=== PATIENT | female | born 1955 | race Caucasian/White ===

== ENCOUNTER → 2018-07-17 12:02 | Outpatient (CLI) | payer OTHER, SELFPAY ==
--- NOTE | 2018-07-17 | DI.MG.S_ITS ---
BILATERAL DIGITAL SCREENING MAMMOGRAM 3D/2D WITH CAD: 07/17/2018 CLINICAL: Routine screening. Comparison is made to exams dated: 04/11/2017 mammogram, 05/01/2015 mammogram, and 05/11/2012 mammogram - [facility]. There are scattered fibroglandular elements in both breasts. Current study was also evaluated with a Computer Aided Detection (CAD) system. There is an oval equal density focal asymmetry with a circumscribed margin in the right breast at 12 o'clock middle depth. There is an oval equal density asymmetry with an obscured and circumscribed margin in the left breast at 6 o'clock anterior depth. No other significant masses or calcifications are seen in either breast. IMPRESSION: INCOMPLETE: NEEDS ADDITIONAL IMAGING EVALUATION The oval equal density focal asymmetry in the right breast at 12 o'clock middle depth is indeterminate. Mediolateral and spot compression views as well as additional views with possible ultrasound are recommended. The oval equal density asymmetry in the left breast at 6 o'clock anterior depth is indeterminate. Mediolateral and spot compression views as well as additional views with possible ultrasound are recommended. This exam was interpreted at Station ID: [id number]. NOTE: For mammograms, a report in lay terms will be sent to the patient. Approximately 15% of breast malignancies will not be visualized mammographically. In the management of a palpable breast mass, a negative mammogram must not discourage biopsy of a clinically suspicious lesion. Electronically Signed By: Tone lacy/felicia:07/17/2018 15:40:39 letter sent: Additional Imaging Needed ACR BI-RADS Category 0: Incomplete 3340F
--- NOTE | 2018-07-17 | DI.US.S_ITS ---
PROCEDURE: US THYROID INDICATIONS: THYROID NODULE TECHNIQUE: Real-time scanning was performed of the thyroid gland, with image documentation. COMPARISON: [facility], US, THYROID, 04/11/2017, 10:22. FINDINGS: Right: Thyroid lobe measures 5.5 x 1.8 x 1.9 cm, and is homogeneous in echotexture. Left: Thyroid lobe measures 3.3 x 0.9 x 0.8 cm, and is homogenous in echotexture. Isthmus: 1.2 mm thick. Nodule number: 1 Location: Left mid Size: Unchanged at 0.5 x 0.4 x 0.5 cm. Composition: Solid Echogenicity: Hyperechoic Shape: wider than tall. Margins: Smooth Echogenic foci: Macrocalcifications Total points: 5 ACR TI-RADS category: Moderately suspicious Nodule number: 2 Location: Right mid inferior Size: Unchanged at 3.0 x 1.6 x 1.9 cm. Composition: Solid Echogenicity: Isoechoic Shape: wider than tall. Margins: Smooth Echogenic foci: Internal punctate echogenic foci Total points: 6 ACR TI-RADS category: Moderately suspicious IMPRESSION: No change in bilateral thyroid nodules. Recommend sonographically directed fine needle aspiration involving the # 2 right thyroid nodule and continued sonographic surveillance as below. ACR TI-RADS definitions and recommendations: TI-RADS 1 (benign): 0 points. FNA not needed. TI-RADS 2 (not suspicious): 2 points. FNA not needed. TI-RADS 3 (mildly suspicious): 3 points. * FNA if 2.5 cm or larger, follow up if 1.5 cm or larger (at 1, 3, and 5 years). TI-RADS 4 (moderately suspicious): 4-6 points. * FNA if 1.5 cm or larger, follow up if 1 cm or larger (at 1, 2, 3, and 5 years). TI-RADS 5 (highly suspicious): 7 points or more. * FNA if 1 cm or larger, follow up if 0.5 cm or larger (every year for 5 years). Dictated by: Jonathan TANG Interpreted: Anthony Castillo MD on 07/17/2018 at 15:53 Approved by: Anthony Castillo M.D. on 07/17/2018 at 17:23
== END ==
PROVIDERS: Family Provider Family Medicine; PCP Family Medicine; Visit Provider Family Medicine
DX: Z12.31 Encounter for screening mammogram for malignant neoplasm of breast (principal); E04.2 Nontoxic multinodular goiter
CPT/HCPCS: 76536; 77063; 77067

== ENCOUNTER → 2018-08-19 14:16 | Outpatient (CLI) | payer OTHER, SELFPAY ==
--- NOTE | 2018-08-19 | DI.MG.S_ITS ---
BILATERAL DIGITAL DIAGNOSTIC MAMMOGRAM 3D/2D WITH ADDITIONAL VIEWS: 08/19/2018 CLINICAL: Additional evaluation requested from prior study. Comparison is made to exams dated: 07/17/2018 mammogram, 04/11/2017 mammogram, and 05/01/2015 mammogram - [facility]. There are scattered fibroglandular elements in both breasts. There is 0.5 cm oval low density focal asymmetry with an indistinct and circumscribed margin in the right breast at 12 o'clock middle depth. There is 0.7 cm oval low density focal asymmetry with an indistinct and circumscribed margin in the left breast at 6 o'clock anterior depth. No other significant masses or calcifications are seen in either breast. IMPRESSION: INCOMPLETE: NEEDS ADDITIONAL IMAGING EVALUATION The 0.5 cm oval low density focal asymmetry in the right breast at 12 o'clock middle depth is indeterminate. An ultrasound is recommended. The 0.7 cm oval low density focal asymmetry in the left breast at 6 o'clock anterior depth is indeterminate. An ultrasound is recommended. This exam was interpreted at Station ID: [id number]. NOTE: For mammograms, a report in lay terms will be sent to the patient. Approximately 15% of breast malignancies will not be visualized mammographically. In the management of a palpable breast mass, a negative mammogram must not discourage biopsy of a clinically suspicious lesion. Electronically Signed By: Tone lacy/felicia:08/19/2018 14:41:56 letter sent: Need Ultrasound ACR BI-RADS Category 0: Incomplete 3340F
--- NOTE | 2018-08-19 | DI.US.S_ITS ---
LIMITED ULTRASOUND OF RIGHT BREAST: 08/19/2018 CLINICAL: Additional evaluation requested from prior study. Comparison is made to exams dated: 08/19/2018 mammogram, 07/17/2018 mammogram, 04/11/2017 mammogram, 05/01/2015 mammogram, 05/11/2012 mammogram, and 08/03/2010 mammogram - [facility]. Color flow and real-time ultrasound of the right breast 12 o'clock region were performed on the areas of interest. There is 0.6 cm x 0.3 cm x 0.4 cm oval cyst with debris with a smooth internal wall in the right breast at 12 o'clock middle depth. This oval cyst with debris is hypoechoic with internal echoes and posterior acoustic enhancement. This correlates with mammography findings. Color flow imaging demonstrates that there is no vascularity present. IMPRESSION: PROBABLY BENIGN The 0.6 cm x 0.3 cm x 0.4 cm oval cyst with debris in the right breast is probably benign. Follow-up mammogram and ultrasound in 6 months is recommended. A follow-up mammogram and an ultrasound in 6 months is recommended to demonstrate stability. This exam was interpreted at Station ID: [id number]. Electronically Signed By: Tone lacy/felicia:08/19/2018 15:38:37 letter sent: Followup Recommended Ultrasound BI-RADS: 3 Probably benign
--- NOTE | 2018-08-19 | DI.US.S_ITS ---
LIMITED ULTRASOUND OF LEFT BREAST: 08/19/2018 CLINICAL: Additional evaluation requested from prior study. Comparison is made to exams dated: 08/19/2018 mammogram, 07/17/2018 mammogram, 04/11/2017 mammogram, 05/01/2015 mammogram, and 05/11/2012 mammogram - [facility]. Color flow and real-time ultrasound of the left breast 6 o'clock region were performed on the areas of interest. There is 0.8 cm x 0.3 cm x 0.4 cm dilated duct in the left breast at 6 o'clock anterior depth. This dilated duct is of mixed echogenicity with internal echoes. This correlates with mammography findings. Color flow imaging demonstrates that there is no vascularity present. IMPRESSION: PROBABLY BENIGN The 0.8 cm x 0.3 cm x 0.4 cm dilated duct in the left breast likely represents duct ectasia and is probably benign. Follow-up mammogram and ultrasound in 6 months is recommended. A follow-up mammogram and an ultrasound in 6 months is recommended to demonstrate stability. This exam was interpreted at Station ID: [id number]. Electronically Signed By: Tnoe lacy/felicia:08/19/2018 15:39:54 letter sent: Followup Recommended Ultrasound BI-RADS: 3 Probably benign
== END ==
PROVIDERS: PCP Family Medicine; Visit Provider Family Medicine
DX: R92.8 Other abnormal and inconclusive findings on diagnostic imaging of breast (principal); N60.01 Solitary cyst of right breast; N60.42 Mammary duct ectasia of left breast
CPT/HCPCS: 76642; 77066; G0279

== ENCOUNTER → 2019-05-11 14:42 | Outpatient (CLI) | payer OTHER, SELFPAY ==
--- NOTE | 2019-05-11 | DI.US.S_ITS ---
ULTRASOUND OF LEFT BREAST: 05/11/2019 CLINICAL: 6 month follow-up of the left breast. Comparison is made to exams dated: 05/11/2019 mammogram, 08/19/2018 ultrasound, 08/19/2018 mammogram, 07/17/2018 mammogram, 04/11/2017 mammogram, and 05/01/2015 mammogram - [facility]. Color flow ultrasound of the left breast was performed. Capps scale images of the real-time examination were reviewed. There is a round cystic lesion in the left breast at 6 o'clock anterior depth. This had a more elongated appearance on the prior ultrasound dated 08/01/18. This cyst displays internal echoes. This correlates with mammography findings. Color flow imaging demonstrates that there is no vascularity present. IMPRESSION: PROBABLY BENIGN The round cyst in the left breast likely represents a complicated cyst and is probably benign. A follow-up left mammogram and an ultrasound in 6 months is recommended to demonstrate stability. This exam was interpreted at Station ID: [id number]. Electronically Signed By: Deborah power/:05/11/2019 16:10:16 letter sent: Followup Recommended Ultrasound BI-RADS: 3 Probably benign
--- NOTE | 2019-05-11 | DI.MG.S_ITS ---
BILATERAL DIGITAL DIAGNOSTIC MAMMOGRAM 3D/2D SHORT-TERM FOLLOW-UP: 05/11/2019 CLINICAL: 12 month Short term follow up for bilateral breasts. Comparison is made to exams dated: 08/19/2018 ultrasound, 07/17/2018 mammogram, and 04/11/2017 mammogram - [facility]. There are scattered fibroglandular elements in both breasts. The focal asymmetry with an indistinct and circumscribed margin in the right breast at 12 o'clock middle depth is slightly increased in size from the prior mammogram dated 07/17/18. The focal asymmetry with an indistinct and circumscribed margin in the left breast at 6 o'clock anterior depth is decreased in size from the prior mammogram. No other significant masses or calcifications are seen in either breast. IMPRESSION: INCOMPLETE: NEEDS ADDITIONAL IMAGING EVALUATION The oval low density focal asymmetry in the right breast at 12 o'clock middle depth is indeterminate. The oval low density focal asymmetry in the left breast at 6 o'clock anterior depth is indeterminate. A targeted ultrasound of the bilateral breasts is recommended and will be performed immediately following this exam. This exam was interpreted at Station ID: [id number]. NOTE: For mammograms, a report in lay terms will be sent to the patient. Approximately 15% of breast malignancies will not be visualized mammographically. In the management of a palpable breast mass, a negative mammogram must not discourage biopsy of a clinically suspicious lesion. Electronically Signed By: Deborah Quezada M.D. lk/:05/11/2019 15:42:30 ACR BI-RADS Category 0: Incomplete 3340F
--- NOTE | 2019-05-11 | DI.US.S_ITS ---
ULTRASOUND OF RIGHT BREAST: 05/11/2019 CLINICAL: 6 month follow-up of the right breast. Comparison is made to exams dated: 05/11/2019 mammogram, 08/19/2018 ultrasound, 08/19/2018 mammogram, 07/17/2018 mammogram, 04/11/2017 mammogram, and 05/11/2012 mammogram - [facility]. Color flow ultrasound of the right breast was performed on the areas of interest. Capps scale images of the real-time examination were reviewed. There is a 0.6 cm x 0.5 cm x 0.5 cm oval anechoic cyst with a smooth internal wall in the right breast at 12 o'clock middle depth. This oval cyst demonstrates posterior acoustic enhancement. This abnormality is slightly increased in size and correlates with mammography findings. Color flow imaging demonstrates that there is no vascularity present. IMPRESSION: BENIGN There is no sonographic evidence of malignancy. The 0.6 cm x 0.5 cm x 0.5 cm oval cyst in the right breast is consistent with a simple cyst and is benign. A 1 year screening mammogram is recommended. This exam was interpreted at Station ID: [id number]. Electronically Signed By: Deborah power/:05/11/2019 16:12:19 letter sent: Normal Exam Ultrasound BI-RADS: 2 Benign
== END ==
PROVIDERS: PCP Family Medicine; Visit Provider Family Medicine
DX: R92.8 Other abnormal and inconclusive findings on diagnostic imaging of breast (principal); N64.89 Other specified disorders of breast; N60.02 Solitary cyst of left breast; N60.01 Solitary cyst of right breast
CPT/HCPCS: 76642; 77066; G0279

== ENCOUNTER → 2019-07-14 14:42 | Outpatient (CLI) | payer OTHER, SELFPAY | PROVIDERS: PCP Family Medicine; Referring Provider Family Medicine; Visit Provider Family Medicine | DX: M85.88 Other specified disorders of bone density and structure, other site (principal); Z78.0 Asymptomatic menopausal state; Z82.62 Family history of osteoporosis | CPT/HCPCS: 77080 ==

== ENCOUNTER → 2019-11-10 12:34 | Outpatient (CLI) | payer OTHER, SELFPAY ==
--- NOTE | 2019-11-10 | DI.US.S_ITS ---
PROCEDURE: US THYROID INDICATIONS: NONTOXIC SINGLE THYROID NODULE TECHNIQUE: Real-time scanning was performed of the thyroid gland, with image documentation. COMPARISON: [facility], US, US THYROID, 07/17/2018, 12:26. FINDINGS: Right: Thyroid lobe measures 5.5 x 1.4 x 1.7 cm, and is homogeneous in echotexture. Left: Thyroid lobe measures 3.5 x 0.9 x 1.0 cm, and is homogenous in echotexture. 5 mm midpole left thyroid calcification unchanged. Isthmus: 1.5 mm thick. Nodule number: 1 Location: Right mid inferior Size: Slightly increased at 2.8 x 1.5 x 2.0 cm. Composition: Solid Echogenicity: Hypoechoic Shape: wider than tall. Margins: Smooth Echogenic foci: Internal punctate echogenic foci Total points: 7 ACR TI-RADS category: Highly suspicious IMPRESSION: Increase in size of right thyroid nodule. Recommend nographically directed fine needle aspiration. ACR TI-RADS definitions and recommendations: TI-RADS 1 (benign): 0 points. FNA not needed. TI-RADS 2 (not suspicious): 2 points. FNA not needed. TI-RADS 3 (mildly suspicious): 3 points. * FNA if 2.5 cm or larger, follow up if 1.5 cm or larger (at 1, 3, and 5 years). TI-RADS 4 (moderately suspicious): 4-6 points. * FNA if 1.5 cm or larger, follow up if 1 cm or larger (at 1, 2, 3, and 5 years). TI-RADS 5 (highly suspicious): 7 points or more. * FNA if 1 cm or larger, follow up if 0.5 cm or larger (every year for 5 years). Dictated by: Jonathan TANG Interpreted: Kaia Alva MD on 11/10/2019 at 16:28 Approved by: Kaia Alva M.D. on 11/10/2019 at 17:17
== END ==
PROVIDERS: PCP Family Medicine; Referring Provider Family Medicine; Visit Provider Family Medicine
DX: E04.1 Nontoxic single thyroid nodule (principal)
CPT/HCPCS: 76536

== ENCOUNTER → 2019-12-02 08:07 | Outpatient (CLI) | payer OTHER, SELFPAY ==
--- NOTE | 2019-12-02 | DI.US.S_ITS ---
LIMITED ULTRASOUND OF LEFT BREAST: 12/02/2019 CLINICAL: 6 month follow-up of cysts. Comparison is made to exams dated: 12/02/2019 mammogram, 05/11/2019 ultrasound, 08/19/2018 ultrasound, 05/11/2019 mammogram, 08/19/2018 mammogram, and 07/17/2018 mammogram - [facility]. Color flow and real-time ultrasound of the left breast were performed. Capps scale images of the real-time examination were reviewed. There is a stable 0.4 cm x 0.4 cm x 0.3 cm irregular cyst in the left breast at 6 o'clock anterior depth 2 cm from the nipple. This irregular cyst displays internal echoes. This likely correlates with mammography findings. Color flow imaging demonstrates that there is no vascularity present. Adjacent or contiguous hypoechoic area measuring 0.7 cm x 0.7 cm x 0.3 cm. No internal vascularity. There also is a stable 0.3 cm x 0.3 cm x 0.2 cm round cyst in the left breast at 6 o'clock anterior depth 3 cm from the nipple. This round cyst is hypoechoic. Color flow imaging demonstrates that there is no vascularity present. IMPRESSION: PROBABLY BENIGN Stable complicated cysts at 6 o'clock 2 cm from the nipple in the left breast measuring 0.4 cm and 0.7 cm. Stable round complicated cyst at 6 o'clock 3 cm from the nipple in the left breast measuring 0.3 cm. A follow-up left breast mammogram and an ultrasound in 6 months is recommended to demonstrate stability. Patient will also be due for right breast screening mammogram at that time. This exam was interpreted at Station ID: [id number]. Electronically Signed By: Juvencio Aviels M.D. slc/:12/02/2019 09:34:03 letter sent: Followup Recommended Ultrasound BI-RADS: 3 Probably benign
--- NOTE | 2019-12-02 | DI.MG.S_ITS ---
UNILATERAL LEFT DIGITAL DIAGNOSTIC MAMMOGRAM 3D/2D SHORT-TERM FOLLOW-UP: 12/02/2019 CLINICAL: Short term follow up. Comparison is made to exams dated: 05/11/2019 mammogram, 08/19/2018 mammogram, 04/11/2017 mammogram, 07/17/2018 mammogram, and 05/01/2015 mammogram - [facility]. There are scattered fibroglandular elements in left breast. There is an oval low density focal asymmetry with an indistinct and circumscribed margin in the left breast at 6 o'clock anterior depth. This is not significantly changed. No other significant masses or calcifications are seen in the breast. IMPRESSION: INCOMPLETE: NEEDS ADDITIONAL IMAGING EVALUATION The oval low density focal asymmetry in the left breast is indeterminate. A targeted ultrasound is recommended and will immediately follow. This exam was interpreted at Station ID: [id number]. NOTE: For mammograms, a report in lay terms will be sent to the patient. Approximately 15% of breast malignancies will not be visualized mammographically. In the management of a palpable breast mass, a negative mammogram must not discourage biopsy of a clinically suspicious lesion. Electronically Signed By: Juvencio Aviles M.D. slc/:12/02/2019 08:37:04 ACR BI-RADS Category 0: Incomplete 3340F
== END ==
PROVIDERS: PCP Family Medicine; Referring Provider Family Medicine; Visit Provider Family Medicine
DX: R92.8 Other abnormal and inconclusive findings on diagnostic imaging of breast (principal); N60.02 Solitary cyst of left breast
CPT/HCPCS: 76642; 77065; G0279

== ENCOUNTER → 2019-12-13 12:46 | Outpatient (CLI) | payer OTHER, SELFPAY ==
--- NOTE | 2019-12-13 | PATH_ITS ---
Note [facility] Accession Number: [id number] TESTS RESULT FLAG UNITS REF RANGE LAB Clinician Provided Cytology Information No. of containers..01 Other (Miscellaneous) No. of containers..00 Previously Prepared Cytology Slide 01 RIGHT THYROID Clinician ICD10: Z00.00 DIAGNOSIS: 01 RIGHT THYROID NEGATIVE FOR MALIGNANT CELLS. [place] CATEGORY II. SPECIMEN CONSISTS OF BENIGN FOLLICULAR CELLS AND COLLOID CONSISTENT WITH A BENIGN FOLLICULAR NODULE. COMMENT: [employer] Developer slides of this case are also reviewed by Dr. Maria Luisa Hernandez who concurs with the given interpretation. Pathologist ICD10: E04.1 Lidia Boo MD, Pathologist NPI- [id number] Kalpesh Houston, Blood Bank Worker ([facility]) 01 30 CC, COLORLESS, CLEAR RECIEVED: IN CYTOLYT WITH 5 ALCOHOL FIXED AND 5 QUICK STAINED SLIDES ALSO 1 RNA VIAL WAS RECEIVED FOR FURTHER TESTING. /VDU 12/15/2019 1214 [facility] FLAG LEGEND: L-Low Normal,H-High Normal,LL-Alert Low,HH-Alert High <-Panic Low,>-Panic High,A-Abnormal,AA-Critical Abnormal Performed at: 01 =Z [facility] [address], [place] [address] Tone Jaquez MD, Performed at: 01 [facility] [address], [place], [place] [id number] MD Tone Jaquez MD Phone: [phone]
--- NOTE | 2019-12-13 | DI.US.S_ITS ---
PROCEDURE: US FINE NEEDLE ASPIRATION INDICATIONS: Nontoxic single thyroid nodule TECHNIQUE: The indications, alternatives, benefits, risks, and complications of the procedure were explained to the patient. Written informed consent was obtained and placed in the chart. The thyroid region was examined sonographically and a site was chosen for ultrasound guided percutaneous sampling. The skin was prepared and draped in the usual fashion, and anesthetized with 1% lidocaine infiltrated from the skin down to the thyroid gland. Multiple passes were then performed, with contents emptied into an appropriate pathology specimen container. A bandage was applied to the area of access at completion of the study. COMPARISON: None. FINDINGS: Location(s) of lesion(s) sampled: Right thyroid lobe, 2.8 x 1.5 x 2.0 cm ovoid mass [place]: 25 gauge hypodermic needles. Sign report Complications: None. IMPRESSION: Successful ultrasound-guided thyroid nodule fine needle aspiration, with cytology results pending. Please see chart below for management recommendations based on cytology results. [facility] ReportingRecommendationsNon-diagnostic* Repeat US-guided FNA, with on-site cytology evaluation if possible. * Repeated non-diagnostic nodules without high suspicion US features: close observation vs surgical consult. * Consider surgery if nodule has high suspicion US features, grows >20% in 2 dimensions on followup, or patient has clinical risk factors for malignancy. Benign* If nodule has high suspicion US features: repeat US and FNA within 12 months. * If nodule has low to intermediate suspicion US features: repeat US at 12-24 months. If nodule grows (20% increase in at least 2 dimensions, with minimal increase of 2 mm or >50% change in volume), or development of new suspicious US features, then repeat FNA or continue followup. * If nodule has very low suspicion US features: followup US at >24 months. Atypia of undetermined significance, follicular lesion of undetermined significanceRepeat FNA, molecular testing, followup US, or surgical consult.Follicular neoplasm, suspicious for follicular neoplasmSurgical consult; also consider molecular testing. Suspicious for malignancySurgical consult.MalignantSurgical consult. Dictated by: Jhony Larios M.D. on 12/13/2019 at 14:01 Approved by: Jhony Larios M.D. on 12/13/2019 at 14:02
== END ==
PROVIDERS: PCP Family Medicine; Referring Provider Family Medicine; Visit Provider Family Medicine
DX: E04.1 Nontoxic single thyroid nodule (principal)
CPT/HCPCS: 10005

== ENCOUNTER → 2021-03-16 10:50 | Outpatient (CLI) | payer MEDICARE, OTHER, SELFPAY ==
--- NOTE | 2021-03-16 | DI.MG.S_ITS ---
BILATERAL DIGITAL SCREENING MAMMOGRAM 3D/2D WITH CAD: 03/16/2021 CLINICAL: Routine screening. Comparison is made to exams dated: 12/02/2019 mammogram, 05/11/2019 mammogram, 08/19/2018 mammogram, and 07/17/2018 mammogram - [facility]. There are scattered fibroglandular elements in both breasts. Current study was also evaluated with a Computer Aided Detection (CAD) system. No significant masses, calcifications, or other findings are seen in either breast. There has been no significant interval change. IMPRESSION: NEGATIVE There is no mammographic evidence of malignancy. A 1 year screening mammogram is recommended. This exam was interpreted at Station ID: [id number]. NOTE: For mammograms, a report in lay terms will be sent to the patient. Approximately 15% of breast malignancies will not be visualized mammographically. In the management of a palpable breast mass, a negative mammogram must not discourage biopsy of a clinically suspicious lesion. Electronically Signed By: Rosa rendon/felicia:03/16/2021 12:50:38 letter sent: Normal Exam ACR BI-RADS Category 1: Negative [id number]
== END ==
PROVIDERS: PCP Family Medicine; Referring Provider Family Medicine; Visit Provider Family Medicine
DX: Z12.31 Encounter for screening mammogram for malignant neoplasm of breast (principal)
CPT/HCPCS: 77063; 77067

== ENCOUNTER → 2021-08-29 14:16 | Outpatient (CLI) | payer MEDICARE, OTHER, SELFPAY ==
[2021-08-29 16:19] LABS: COVID19 -Nasal RAPID Negative (Negative)
== END ==
PROVIDERS: PCP Family Medicine; Visit Provider Family Medicine Sleep Medicine
DX: Z20.822 Contact with and (suspected) exposure to COVID-19 (principal)
CPT/HCPCS: 87635; C9803

== ENCOUNTER 2021-08-31 12:43 | Day surgery (SDC) | payer MEDICARE, OTHER, SELFPAY ==
[2021-08-31] VITALS (7 sets, daily range): BP systolic 124–145; BP diastolic 69–87; PULSE 50–67; RESP 10–19; TEMP 36.2–36.9; O2SAT 95–99; BMI 25.8
--- NOTE | 2021-08-31 | PATH_ITS ---
[facility] Accession Number: [id number] . 01 Material submitted: . sigmoid colon - 1CM SIGMOID POLYP 30CM . 02 Diagnosis: 1 cm Sigmoid Polyp 30 cm: Tubular adenoma. MRV 09/05/2021 1111 Local . 02 Electronically signed: . Darcy Trejo MD, Pathologist NPI- [id number] . 01 Gross description: . 1CM SIGMOID POLYP 30CM: Received in formalin is 1 fragment(s) of bernard, soft tissue measuring 0.8 x 0.7 x 0.3 cm submitted entirely in 1 cassette(s) /CPE 09/04/2021 0540 Local . 02 Pathologist provided ICD-10: Z12.11, K63.5 . 02 CPT . 015646 Specimen Comment: A courtesy copy of this report has been sent to [phone] Performed at: 01 [facility] [address] [facility][note 3], [place], [place] [id number] MD Tone Jaquez MD Phone: [phone] Performed at: 02 [facility] [address] [place], [place] [id number] MD Unique Garcias MD Phone: [phone]
--- NOTE | 2021-08-31 12:08 | PM.HP.1 ---
History of Present Illness History of Present Illness Date Patient Seen: 08/31/21 Chief complaint: [place] Narrative: 66 year old female comes in today for consideration of a screening colonoscopy. Has had two lifetime colonoscopies, 1st in 2008 was indicated for screening and family history of colon cancer. Finding showed a sessile polyp at 30 cm which was cold biopsied in 3 bites. Unfortunately, pathology not available at time of dictation. Few scattered diverticula also noted in the sigmoid colon. Last colonoscopy in 2015 showed two 5 mm adjacent polyps at around 25 cm, pathology not availabe at time of dictation. Scattered diverticulosis again seen, left greater than right. There have been no lower GI symptoms suggesting disease such as change in bowel habits, bleeding, abdominal pain or anemia. She does have a family history of colon cancer in her father after age 70. Overall health issues have been stable, including no major cardiac events for at least 6 weeks. PCP: Dr. Baptiste Past medical history: GERD Palpitations Sciatica Rosacea Olfactory aura Thyroid nodule Osteopenia Hyperlipidemia Past surgical history: Hysterectomy, 1995 Cystocele and rectocele repair, 2016 Family history: Father: at age 78 from colon cancer. History of alcohol and substance abuse. 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 Two children. Patient History Surgical History (Updated 09/30/17 @ 05:58 by Conversion Provider) Status post hysterectomy Meds Home Medications and Allergies Home Medications Medication Instructions Recorded Confirmed Type estradiol 0.5 mg tablet 0.5 mg PO QDAY #0 tab 03/19/16 History Allergies Allergy/AdvReac Type Severity Reaction Status Date / Time No Known Allergies Allergy Uncoded 09/10/17 12:20 Review of Systems Review of Systems Narrative: All remaining ROS were reviewed and negative except as addressed. Exam Narrative Exam Narrative: GENERAL: Alert and oriented, appearing stated age and in no acute distress. HEENT: Head normocephalic/atraumatic. Extraocular movements intact. LUNGS: Clear to ausculation bilaterally, no wheezes, rhonchi or rales. CV: Normal S1 and S2 with regular rate and rhythm, no audible murmurs, rubs or gallops. ABDOMEN: Soft, non-tender, non-distended, no organomegaly. Positive bowel sounds. EXTREMITIES: No clubbing, cyanosis, or edema. NEURO: Cranial nerves II through XII grossly intact, no focal deficits. PSYCH: Alert and oriented x 3. SKIN: No concerning lesions. Assessment & Plan Assessment & Plan narrative: 1. History of colon polyps 2. Family history of colon cancer 3. Screening for colon cancer Plan for colonoscopy. The nature and character of the procedure as well as anticipated results were discussed. The possibility of not completing the procedure was also discussed. Possible complications including aspiration pneumonia, bleeding, perforation and reaction to medications either for sedation or preparation and missed lesions were discussed. Questions were answered and proceeding to the colonoscopy was elected. Informed consent signed. I sincerely appreciate the referral allowing me to participate in this patient's care. Please contact me with any questions or concerns.
--- NOTE | 2021-08-31 12:22 | PM.OP.COLON ---
Operative Date/Time/Diagnoses Date of procedure: 08/31/21 Procedure Notes SCOAP/Timeout: 1:47 p.m. Procedure in detail: ENDOSCOPIST: Mariana Joyce MD Sedation RN: Ema Hammond RN Sedation start time: 1:47 p.m. Sedation end time: 2:23 p.m. PROCEDURE: Colonoscopy with cold snare and methylene blue lift INDICATIONS: 1. History of colon polyps 2. Family history of colon cancer 3. Screening for colon cancer MEDICATION: Levsin 0.125 mg sublingual, incremental doses of Versed and fentanyl until appropriate level sedation achieved. ASA CLASS: 2 CECAL WITHDRAWAL TIME: 15 minutes COMPLICATIONS: None. EXTENT OF PROCEDURE: Cecum. QUALITY OF PREP: Good with portions of liquid stool. PROCEDURE: Prior to insertion of the colonoscope, a digital rectal examination was accomplished with circumferential palpation of the distal rectal mucosa without significant findings being noted. The high-definition pediatric colonoscope was passed into the rectum in the usual fashion and advanced over to the cecum with no difficulty to the hepatic flexure, at that point, colon was slightly tortuous and patient was placed in supine position to allow scope to be advanced to cecum without any further difficulty. The ileocecal valve, appendiceal stoma, and medial wall all could be inspected and no abnormalities were seen. ASCENDING COLON: As the colonoscope was withdrawn, care was taken to expose and inspect the haustral folds and no abnormalities were seen. HEPATIC FLEXURE: Normal, no polyps, diverticula or other abnormalities. TRANSVERSE COLON: Normal, no polyps, diverticula or other abnormalities. DESCENDING COLON: Minor diverticulosis, otherwise, no polyps, or other abnormalities. SIGMOID COLON: In the sigmoid colon at approximately 30 cm, a 1 cm sessile polyp was seen. It was lifted with methylene blue and removed with cold snare, excellent hemostasis and clear margins noted. Moderate diverticulosis and no other abnormalities. RECTUM: Normal. J maneuver was produced. There was no significant perianal disease. The J maneuver was broken. The remainder of the rectum was inspected and there was minor external hemorrhoid disease. The scope was withdrawn. IMPRESSION: 1. Sigmoid polyp x1, 1 cm, 30 cm, lifted with methylene blue and removed with cold snare 2. Left-sided diverticulosis 3. External hemorrhoids PLAN: 1. Follow-up in clinic status post pathology results. The possibility of a missed lesion including a malignancy has been discussed with the patient previously. Potential alarm symptoms have been discussed and should be reported immediately.
[2021-08-31] MEDS: LACTATED RINGERS 1,000 ML 200 ML IV (13:04)
[2021-08-31] MEDS: HYOSCYAMINE 0.125 MG TABLET PO (13:04)
[2021-08-31] MEDS: fentaNYL 250 MCG/5 ML INJ IV (14:30)
[2021-08-31] MEDS: MIDAZOLAM 5 MG/5 ML VIAL IV (14:30)
[2021-08-31] MEDS: METHYLENE BLUE 50 MG/10 ML VIAL INJ (14:31)
--- NOTE | 2021-08-31 15:02 | SUR.PHASEII ---
pt transferred to Joanie RN SBAR report given. at [facility]. Pt awake, drowsy, tolerated juice.
== END 2021-08-31 15:25 | disposition home or self-care (01) ==
PROVIDERS: PCP Family Medicine; Referring Provider Student in an Organized Health Care Education/Training Program; Visit Provider Student in an Organized Health Care Education/Training Program
PROC: 0DJD8ZZ Inspection of Lower Intestinal Tract, Via Natural or Artificial Opening Endoscopic (ICD-10-PCS; CPT 45378; principal; 2021-08-31 13:45)
DX: Z12.11 Encounter for screening for malignant neoplasm of colon (principal); Z86.010 Personal history of colon polyps; Z80.0 Family history of malignant neoplasm of digestive organs; K57.30 Diverticulosis of large intestine without perforation or abscess without bleeding; K64.8 Other hemorrhoids; D12.5 Benign neoplasm of sigmoid colon
CPT/HCPCS: 45385; 45381; J2250; J3010; Q9968

== ENCOUNTER → 2021-11-22 14:38 | Outpatient (CLI) | payer MEDICARE, OTHER, SELFPAY ==
--- NOTE | 2021-11-22 | DI.US.S_ITS ---
PROCEDURE: US THYROID INDICATIONS: NONTOXIC SINGLE THYROID NODULE TECHNIQUE: Real-time scanning was performed of the thyroid gland, with image documentation. COMPARISON: [facility], [place], US THYROID, 11/10/2019, 13:04. FINDINGS: Right: Thyroid lobe measures 5.4 x 1.1 x 0.9 cm, and demonstrates a nodule inferiorly Left: Thyroid lobe measures 2.8 x 1.0 x 0.6 cm, and demonstrates a focal calcification within the midportion. Isthmus: 2 mm thick. Nodule number: 1 Location: Right inferior thyroid Size: 2.6 x 2.0 x 1.4 cm. Not significantly changed. Composition: Solid Echogenicity: Isoechoic Shape: wider than tall. Margins: Smooth Echogenic foci: Punctate Total points: 6 ACR TI-RADS category: 4 Recommendations: Disc nodule has already undergone fine needle aspiration. IMPRESSION: Right inferior thyroid nodule is present, which is not significantly changed. Dictated by: Jesse Cheney M.D. on 11/22/2021 at 15:56 Transcribed by: NORA on 11/22/2021 at 15:59 Approved by: Jesse Cheney M.D. on 11/22/2021 at 16:59
== END ==
PROVIDERS: PCP Family Medicine; Referring Provider Family Medicine; Visit Provider Family Medicine
DX: E04.1 Nontoxic single thyroid nodule (principal)
CPT/HCPCS: 76536

== ENCOUNTER → 2022-08-06 09:41 | Outpatient (CLI) | payer MEDICARE, OTHER, SELFPAY ==
--- NOTE | 2022-08-06 10:00 | DI.DEXA.S_ITS ---
Indication: osteopenia; Referring Provider: WILLIAMS BLAND Study: Bone densitometry was performed. Exam Date: August 06, 2022 Accession number: [id number] Bone Density: Region BMD T-score Z-score Classification AP Spine(L1-L4) 0.751 -2.7 -0.7 Osteoporosis Femoral Neck (Left) 0.652 -1.8 -0.1 Osteopenia Total Hip (Left) 0.775 -1.4 0.0 Osteopenia Femoral Neck (Right) 0.667 -1.6 0.0 Osteopenia Total Hip (Right) 0.764 -1.5 -0.1 Osteopenia Total Hip Mean 0.769 -1.5 -0.1 Osteopenia World Health Organization criteria for BMD impression classify patients as: Normal (T-score at or above -1.0), Osteopenia (T-score between -1.0 and -2.5), or Osteoporosis (T-score at or below -2.5). 10-year Fracture Risk: FRAX not reported because: Some T-score for Spine Total or Hip Total or Femoral Neck at or below -2.5 Previous Exams: -- Region Exam Age BMD T-score BMD Change BMD Change Date g/cm2 vs Baseline vs Previous -- AP Spine (L1-L4) 08/06/2022 67 0.751 -2.7 -0.072 (-8.8%)# -0.072 (-8.8%)# 07/14/2019 63 0.824 -2.0 Total Hip(Left) 08/06/2022 67 0.775 -1.4 0.004 (0.5%)# 0.004 (0.5%)# 07/14/2019 63 0.771 -1.4 Total Hip(Right) 08/06/2022 67 0.764 -1.5 0.001 (0.2%)# 0.001 (0.2%)# 07/14/2019 63 0.762 -1.5 -- *Denotes significance at 95% confidence level, LSC for AP Spine = 0.022 g/cm2, LSC for Total Hip = 0.027 g/cm2 # Denotes dissimilar scan types or analysis methods Impression: The patient has osteoporosis, based on the Total Spine T-score. No significant bone loss was observed. Discussion: INCREASED RISK OF FRACTURE. BONE DENSITY IS UNDESIRABLY LOW AT ONE OR MORE SKELETAL SITES, CONSISTENT WITH POSTMENOPAUSAL OSTEOPOROSIS. This patient's lowest T-score meets the World Health Organization's (WHO) criteria for osteoporosis at one or more sites (T-score -2.5 or below). In untreated patients, the risk of osteoporotic fracture increases approximately two-fold for each 1.0 SD decrease in T-score. Low bone density is not the only risk factor for fracture; also consider factors such as patient's age, frailty or poor health, risk of falling, risk of injury, previous osteoporotic fracture, family history of osteoporosis, cigarette smoking, low body weight, etc. Not everyone with low bone mineral density has osteoporosis; osteomalacia and other metabolic bone disorders should also be considered. Patients who have osteoporosis should be evaluated for specific diseases and conditions (secondary causes) that may cause or contribute to bone loss. The [place] Association of Clinical Endocrinologists (AACE) and National Osteoporosis Foundation (NOF) recommend pharmacologic intervention for all postmenopausal women whose T-score is in this range. The patient should follow a healthful lifestyle (good nutrition with adequate calcium and vitamin D, and appropriate weight-bearing exercise). Follow-Up: Consider a repeat BMD and Vertebral Fracture Assessment (VFA) exam in 2 years or sooner if medically necessary, to reassess this patient's status. Reported by: Argelia Medellin M.D. on 08/06/2022 10:06:00 AM.
== END ==
PROVIDERS: PCP Family Medicine; Referring Provider Family Medicine; Visit Provider Family Medicine
DX: Z78.0 Asymptomatic menopausal state (principal); M81.0 Age-related osteoporosis without current pathological fracture; Z92.23 Personal history of estrogen therapy; Z90.710 Acquired absence of both cervix and uterus
CPT/HCPCS: 77080

== ENCOUNTER → 2022-10-29 16:09 | Outpatient (CLI) | payer MEDICARE, OTHER, SELFPAY ==
--- NOTE | 2022-10-29 | DI.ECHO.S_ITS ---
[facility] +---------+ : : [address] : : : : [place] : : : : [place], : : : : [place] [address] : : : : Phone: [phone] [phone] Echocardiogram Report + + :Name: KATIA DURAND Study Date: 10/29/2022 Height: 66 in : :[facility] ReadingLocation: Weight: 165 lb : : Gender: Female BSA: 1.8 m2 : :: 1955 Age: 67 yrs BP: 162/87 mmHg: :Reason For Study: Palpitations : :Ordering Physician: Oliva, : :Tory Performed By: Bonita Guerrero : :Referring: TORY BLAND : + + Interpretation Summary Normal sinus rhythm. Normal LV size; mild LVH; normal wall motion and LV systolic function. EF is 60-65%. Normal chamber sizes. No significant valvular abnormalities. Estimated PA systolic pressure is 29 mm Hg assuming RA pressure of 3 mm Hg. No prior study available for comparison. Procedure: A two-dimensional transthoracic echocardiogram with color flow and Doppler was performed. The study quality was technically adequate. There is no prior echocardiogram noted for this patient. The patient was in normal sinus rhythm during the exam. The patient had occasional PVCs during the exam. Left Ventricle: The left ventricle is normal in size. The ejection fraction is estimated to be 60-65%. Diastolic parameters suggest probable normal left ventricular diastolic function and normal filling pressures. Right Ventricle: The right ventricle is normal size. The right ventricular systolic function is normal. Atria: The left atrial size is normal. Right atrial size is normal. There is no Doppler evidence for an interatrial shunt. Mitral Valve: The mitral valve is normal. There is no mitral valve stenosis. There is no mitral regurgitation noted. Aortic Valve: The aortic valve is trileaflet. The aortic valve opens well. There is no aortic valve stenosis. No aortic regurgitation is present. Tricuspid Valve: The tricuspid valve is normal. There is no tricuspid stenosis. There is mild tricuspid regurgitation. The right ventricular systolic pressure is estimated to be at least 29 mmHg based on an estimated right atrial pressure of 3 mm Hg. Pulmonic Valve: The pulmonic valve leaflets are thin and pliable; valve motion is normal. There is no pulmonic valvular stenosis. There is trace pulmonic regurgitation. Great Vessels: The aortic root is normal size. The ascending aorta is normal in size. The pulmonary artery is normal size. The IVC is of normal diameter and collapses greater than 50% with a sniff. This suggests a low right atrial pressure of 3 mm Hg. Pericardium/ Pleura There is no pericardial effusion. There is no pleural effusion. MMode/2D Measurements & Calculations LVIDd: 4.2 cm AoV Openin.8 cm LVIDs: 2.8 cm LVOT diam: 1.9 cm IVSd: 1.2 cm Ao root diam: 3.0 cm LVPWd: 1.4 cm asc Aorta Diam: 2.8 cm LV clarke. diameter/BSA (cm/m^2): 2.3 LV sys. diameter/BSA (cm/m^2): 1.5 FS: 33.3 % EPSS: 0.30 cm LA A2 area: 20.7 cm2 RA long axis: 4.9 cm LA A4 area: 15.5 cm2 RA area: 15.0 cm2 LA length (vol): 5.5 cm RA vol: 38.8 ml LA vol: 49.5 ml RA : 21.1 ml/m2 LA vol index: 26.9 ml/m2 RVD1 (basal): 3.5 cm IVC diam: 1.5 cm LVLs ap4: 5.4 cm LVLd ap2: 6.4 cm LVLs ap2: 5.2 cm TAPSE_phl: 2.7 cm Doppler Measurements & Calculations Ao V2 max: 148.0 cm/sec LVOT Max Jong: 123.0 cm/sec Ao V2 mean: 102.0 cm/sec LV V1 max P.1 mmHg Ao V2 VTI: 33.0 cm LV V1 VTI: 27.3 cm Ao max P.0 mmHg Ao mean P.0 mmHg CHELO(I,D): 2.3 cm2 MV E max jong: 81.0 cm/sec CHELO(V,D): 2.4 cm2 MV A max jong: 52.3 cm/sec CHELO indexed to BSA (cm^2/m^2): 1.3 MV E/A: 1.5 sev ratio: 0.83 Med Peak E' Jong: 7.5 cm/sec E/E' med: 10.9 Lat Peak E' Jong: 10.8 cm/sec E/E' lat: 7.5 E/e' average: 9.2 MV dec time: 0.27 sec TR max jong: 254.7 cm/sec TR max P.4 mmHg PA V2 max: 92.7 cm/sec SV(LVOT): 77.4 ml PA V2 mean: 59.8 cm/sec PA mean P.0 mmHg PA pr(Accel): 7.9 mmHg AV VR_phl: 0.83 CHELO(VTI)/BSA_phl: 1.3 Electronically signed by: Mona Kang M.D. on Reading Physician:10/30/2022 01:30 AM
== END ==
PROVIDERS: PCP Family Medicine; Referring Provider Family Medicine; Visit Provider Family Medicine
DX: R00.2 Palpitations (principal)
CPT/HCPCS: 93306

== ENCOUNTER → 2022-10-30 13:47 | Outpatient (CLI) | payer MEDICARE, OTHER, SELFPAY | PROVIDERS: PCP Family Medicine; Referring Provider Family Medicine; Visit Provider Family Medicine | DX: R00.2 Palpitations (principal) | CPT/HCPCS: 93246 ==

== ENCOUNTER → 2023-10-20 12:11 | Outpatient (CLI) | payer MEDICARE, OTHER, SELFPAY ==
--- NOTE | 2023-10-20 12:13 | DI.US.S_ITS ---
PROCEDURE: US THYROID INDICATIONS: Age-related osteoporosis; Nontoxic single thyroid TECHNIQUE: Real-time scanning was performed of the thyroid gland, with image documentation. COMPARISON: [facility], US, US FINE NEEDLE ASPIRATION, 12/13/2019, 13:06. [facility], US, US THYROID, 11/22/2021, 14:51. FINDINGS: Thyroid: Right lobe measures 5.2 x 1.4 x 2.1 cm. Left lobe measures 2.8 x 0.5 x 0.9 cm. Isthmus is 0.12 cm thick. Echotexture is homogeneous. Nodule number: 1 Location: Right inferior Size: 2.7 x 1.4 x 1.8 cm. This previously measured 2.6 x 1.4 x 2.0 cm on the comparison ultrasound dated November 22, 2021. Composition: Solid Echogenicity: Isoechoic Shape: wider than tall. Margins: Smooth Echogenic foci: None Total points: 3 ACR TI-RADS category: 3 IMPRESSION: T3 isoechoic right thyroid lesion which has previously undergone FNA. This is unchanged in size from the study dated November 22, 2021 and the study dated and the study dated November 10, 2019. ACR TI-RADS definitions and recommendations: TI-RADS 1 (benign): 0 points. FNA not needed. TI-RADS 2 (not suspicious): 2 points. FNA not needed. TI-RADS 3 (mildly suspicious): 3 points. * FNA if 2.5 cm or larger, follow up if 1.5 cm or larger (at 1, 3, and 5 years). TI-RADS 4 (moderately suspicious): 4-6 points. * FNA if 1.5 cm or larger, follow up if 1 cm or larger (at 1, 2, 3, and 5 years). TI-RADS 5 (highly suspicious): 7 points or more. * FNA if 1 cm or larger, follow up if 0.5 cm or larger (every year for 5 years). Dictated by: Deborah Quezada M.D. on 10/20/2023 at 16:09 Approved by: Deborah Quezada M.D. on 10/20/2023 at 16:12
--- NOTE | 2023-10-20 12:13 | DI.RAD.S_ITS ---
PROCEDURE: XR DEXA AXIAL SKELETON INDICATIONS: Age-related osteoporosis; Nontoxic single thyroid COMPARISON: [facility], CR, XR DEXA AXIAL SKELETON, 08/06/2022, 10:00. [facility], CR, XR DEXA AXIAL SKELETON, 07/14/2019, 15:11. FINDINGS: Lumbar Spine: Bone mineral density 0.758 g/cm2, T score -2.6, statistically unchanged. Left Hip: Bone mineral density 0.78 g/cm2, T score -1.3, statistically unchanged. Left Femoral Neck: Bone mineral density is 0.613 g/cm2, T score -2.1. Right Hip: Bone mineral density 0.763 g/cm2, T score -1.5, unchanged. Right Femoral Neck: Bone mineral density 0.651 g/cm2, T score -1.8. Fracture Risk Calculation (when applicable): 10-year fracture risk of a major osteoporotic fracture 12 percent and of a hip fracture 2.2 percent. (T score greater or equal to -1.0 to: NORMAL) (T score from -1.1 to -2.4: OSTEOPENIA) (T score less than or equal to -2.5: OSTEOPOROSIS) IMPRESSION: Osteopenia. No statistical change. Follow-up guidelines as follows: Osteoporosis: Consider a repeat DEXA and Vertebral Fracture Assessment (VFA) exam in 2 years or sooner if medically necessary, to reassess this patient's status. Osteopenia: Consider a repeat DEXA in 2-3 years to reassess this patient's status, or if there is a new clinical indication. Normal: Consider a repeat DEXA in 5 years or sooner, or if there is a new clinical indication. Dictated by: Garrett Turner M.D. on 10/20/2023 at 14:28 Approved by: Garrett Turner M.D. on 10/20/2023 at 14:29
== END ==
PROVIDERS: PCP Family Medicine; Referring Provider Family Medicine; Visit Provider Family Medicine
DX: M81.0 Age-related osteoporosis without current pathological fracture (principal); E04.1 Nontoxic single thyroid nodule
CPT/HCPCS: 76536; 77080

== ENCOUNTER → 2023-11-05 15:09 | Outpatient (CLI) | payer MEDICARE, OTHER, SELFPAY ==
--- NOTE | 2023-11-05 21:39 | DI.NM.S_ITS ---
DATE OF SERVICE: 11/05/2023 PROCEDURE: Exercise stress test. INDICATIONS: Palpitation, atrial tachycardia, hypertension, hyperlipidemia. CARDIAC STRESS: The patient underwent exercise stress test under the supervision of an attending staff using standard Good protocol. The patient walked on Good protocol for 7 minutes and 31 seconds, achieved maximum heart rate of 149, which was 99% of target heart rate. Resting blood pressure 126/84. Peak blood pressure 158/72 mmHg. Baseline rhythm was sinus. During stress, no convincing ischemic changes seen. No significant arrhythmias seen. PATRICA -26%. Achieved 7.5 METS of workload. No anginal symptoms. The patient felt fatigue and dyspnea. CONCLUSION: Exercise stress test did not show any convincing ischemic changes. Good exercise tolerance. PATRICA -26%. Normal hemodynamic response. No chest pain. No significant arrhythmias. Overall, low- risk exercise stress test. Yamilet Collado - SHERMAN/chantell/[place] doc#: [id number]/job#: [id number] dd: 11/05/2023 16:43:00 dt: 11/05/2023 21:06:00 DICTATING /COPIES TO: Cary Cullen MD COPIES MNE: CHIQUI;
== END ==
PROVIDERS: PCP Family Medicine; Referring Provider Internal Medicine Cardiovascular Disease; Visit Provider Internal Medicine Cardiovascular Disease
DX: I47.29 Other ventricular tachycardia (principal)
CPT/HCPCS: 93017

== ENCOUNTER → 2024-01-22 07:58 | Outpatient (CLI) | payer MEDICARE, OTHER, SELFPAY ==
--- NOTE | 2024-01-22 | DI.MG.S_ITS ---
BILATERAL DIGITAL SCREENING MAMMOGRAM 3D/2D WITH CAD: 01/22/2024 CLINICAL: Routine screening. Comparison is made to exams dated: 03/16/2021 mammogram, 05/11/2019 mammogram, and 07/17/2018 mammogram - [facility]. There are scattered areas of fibroglandular density in both breasts (category b / 25%-50% glandular tissue). Current study was also evaluated with a Computer Aided Detection (CAD) system. There is a developing cluster of round equal density focal asymmetries with an obscured and indistinct margin in the left breast at 1 o'clock posterior depth. This is more prominent and increased in number. There also is an oval high density focal asymmetry with a circumscribed margin in the left breast at 6 o'clock anterior depth. This is increased in size. No other significant masses, calcifications, or other findings are seen in either breast. IMPRESSION: INCOMPLETE: NEEDS ADDITIONAL IMAGING EVALUATION The developing cluster of round equal density focal asymmetries in the left breast at 1 o'clock posterior depth is indeterminate. Additional views with possible ultrasound are recommended. The oval high density focal asymmetry in the left breast at 6 o'clock anterior depth is indeterminate. Additional views with possible ultrasound are recommended. Based on the Tyrer Cuzick model (a risk assessment model) the patient's lifetime risk is 4.5% and her 10 year risk is 2.7%. According to the ACR, ACS, and NCCN guidelines, an annual breast MRI exam along with mammogram is recommended if the patient's lifetime risk is 20% or greater. This exam was interpreted at Station ID: [id number]. NOTE: For mammograms, a report in lay terms will be sent to the patient. Approximately 15% of breast malignancies will not be visualized mammographically. In the management of a palpable breast mass, a negative mammogram must not discourage biopsy of a clinically suspicious lesion. Electronically Signed By: Rosa rendon/felicia:01/22/2024 16:06:26 letter sent: Additional Imaging Needed ACR BI-RADS Category 0: Incomplete 3340F
== END ==
PROVIDERS: PCP Family Medicine; Referring Provider Family Medicine; Visit Provider Family Medicine
DX: Z12.31 Encounter for screening mammogram for malignant neoplasm of breast (principal); R92.323 Mammographic fibroglandular density, bilateral breasts
CPT/HCPCS: 77063; 77067

== ENCOUNTER → 2024-04-09 11:58 | Outpatient (CLI) | payer MEDICARE, OTHER, SELFPAY ==
--- NOTE | 2024-04-09 11:59 | DI.US.S_ITS ---
LIMITED ULTRASOUND OF LEFT BREAST: 04/09/2024 CLINICAL: Patient returns today to evaluate a focal asymmetry in the left breast. Comparison is made to exams dated: 04/09/2024 mammogram, 01/22/2024 mammogram, 03/16/2021 mammogram, 12/02/2019 ultrasound, 12/02/2019 mammogram, and 05/11/2019 [facility]. Real-time ultrasound of the left breast 1-3 o'clock region was performed. Capps scale images of the real-time examination were reviewed. There are multiple scattered simple and complicated cysts in the left breast superior lateral quadrant anterior depth. These correlate with mammography findings. Patient had previous ultrasound evaluation showing multiple benign cysts. IMPRESSION: BENIGN There is no sonographic evidence of malignancy. The multiple cysts in the left breast likely represent cluster of both simple and complicated cysts and are benign. A 1 year screening mammogram is recommended. Findings and recommendations were conveyed to the patient during today's evaluation. This exam was interpreted at Station ID: [id number]. Electronically Signed By: Brady Delvalle M.D. at/:04/09/2024 15:51:12 letter sent: Normal Exam ACR BI-RADS Category 2: Benign
--- NOTE | 2024-04-09 11:59 | DI.MG.S_ITS ---
UNILATERAL LEFT DIGITAL DIAGNOSTIC MAMMOGRAM 3D/2D WITH ADDITIONAL VIEWS: 04/09/2024 CLINICAL: Additional evaluation requested from prior study. Comparison is made to exams dated: 01/22/2024 mammogram, 03/16/2021 mammogram, 05/11/2019 mammogram, 05/11/2019 ultrasound, and 12/02/2019 mammogram - [facility]. There are scattered areas of fibroglandular density (category b / 25%-50% glandular tissue). There also is a developing cluster of round equal density focal asymmetries with an obscured and indistinct margin in the left breast at 1 o'clock posterior depth. This is seen in additional views. This is less prominent. Additionally, there is a oval focal asymmetry with a circumscribed margin in the left breast at 6 o'clock anterior depth. This is less prominent and decreased in size compared to recent mammogram but stable compared to 2019 exam. No other significant masses or calcifications are seen in the breast. IMPRESSION: INCOMPLETE: NEED ADDITIONAL IMAGING EVALUATION The developing cluster of round equal density focal asymmetries in the left breast at 1 o'clock posterior depth resembles clustered cysts and is indeterminate. An ultrasound is recommended for further evaluation and is scheduled to immediately follow this examination. Based on the Tyrer Cuzick model (a risk assessment model) the patient's lifetime risk is 4.5% and her 10 year risk is 2.7%. According to the ACR, ACS, and NCCN guidelines, an annual breast MRI exam along with mammogram is recommended if the patient's lifetime risk is 20% or greater. This exam was interpreted at Station ID: [id number]. NOTE: For mammograms, a report in lay terms will be sent to the patient. Approximately 15% of breast malignancies will not be visualized mammographically. In the management of a palpable breast mass, a negative mammogram must not discourage biopsy of a clinically suspicious lesion. Electronically Signed By: Brady Delvalle M.D. aty/:04/09/2024 15:46:26 letter sent: Additional Imaging Needed ACR BI-RADS Category 0: Incomplete: Need Additional Imaging Evaluation
== END ==
PROVIDERS: PCP Family Medicine; Referring Provider Family Medicine; Visit Provider Family Medicine
DX: R92.8 Other abnormal and inconclusive findings on diagnostic imaging of breast (principal); N60.02 Solitary cyst of left breast
CPT/HCPCS: 76642; 77065; G0279

== ENCOUNTER → 2024-10-19 12:44 | Outpatient (CLI) | payer MEDICARE, OTHER, SELFPAY ==
--- NOTE | 2024-10-19 12:45 | DI.RAD.S_ITS ---
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 FINDINGS: Lumbar Spine: Bone mineral density 0.787 g/cm2, T score -2.4, compared to -2.6. Left Femoral Neck: Bone mineral density 0.657 g/cm2, T score -1.7, compared to -2.1. Left Hip: Bone mineral density 0.804 g/cm2, T score -1.1, compared to -1.3. Fracture Risk Calculation (when applicable): 10-year fracture risk of a major osteoporotic fracture 11 percent and of a hip fracture 1.8 percent. This is compared to 12% and 2.2% respectively (T score greater or equal to -1.0 to: NORMAL) (T score from -1.1 to -2.4: OSTEOPENIA) (T score less than or equal to -2.5: OSTEOPOROSIS) IMPRESSION: Improved bone mineral density now with severe osteopenia in the lumbar spine as opposed to previous osteoporosis. Femoral neck and hip also demonstrate improved bone mineral density by 7.2% and 3.1% respectively. Follow-up guidelines as follows: Osteoporosis: Consider a repeat DEXA and Vertebral Fracture Assessment (VFA) exam in 2 years or sooner if medically necessary, to reassess this patient's status. Osteopenia: Consider a repeat DEXA in 2-3 years to reassess this patient's status, or if there is a new clinical indication. Normal: Consider a repeat DEXA in 5 years or sooner, or if there is a new clinical indication. All treatment decisions require clinical judgment and consideration of individual patient factors, including patient preferences, comorbidities, previous drug use, risk factors not captured in the FRAX model (e.g., frailty, falls, vitamin D deficiency, increased bone turnover, interval significant decline in bone density ) and possible under- or over-estimation of fracture risk by FRAX. In addition, the NOF Guide recommends that FDA-approved medical therapies be considered in postmenopausal women and men age >= 50 years with a: * Hip or vertebral (clinical or morphometric) fracture * T-score of <=-2.5 at the spine or hip * Ten-year fracture probability by FRAX of >= 3% for hip fracture or >=20% for major osteoporotic fracture. Dictated by: Kaia Alva M.D. on 10/19/2024 at 15:59 Approved by: Kaia Alva M.D. on 10/19/2024 at 16:01
== END ==
LOC: RAD 12:44
PROVIDERS: PCP Family Medicine; Referring Provider Family Medicine; Visit Provider Family Medicine
DX: M81.0 Age-related osteoporosis without current pathological fracture (principal); M85.89 Other specified disorders of bone density and structure, multiple sites
CPT/HCPCS: 77080

== ENCOUNTER → 2025-05-16 11:26 | Outpatient (CLI) | payer MEDICARE, OTHER, SELFPAY ==
--- NOTE | 2025-05-16 11:28 | DI.RAD.S_ITS ---
PROCEDURE: XR HIP W PEL IF DONE RT 2V INDICATIONS: RT HIP PAIN TECHNIQUE: AP view of the pelvis and lateral view of the right hip COMPARISON: None. FINDINGS: Bones: No fractures or dislocations. Pelvic ring appears intact. No suspicious bony lesions. Hip joint spaces maintained. Soft tissues: The visualized bowel gas pattern is normal. No suspicious soft tissue calcifications. IMPRESSION: Unremarkable right hip Dictated by: Jorge Russo M.D. on 05/16/2025 at 13:14 Approved by: Jorge Russo M.D. on 05/16/2025 at 13:15
== END ==
PROVIDERS: PCP Family Medicine; Referring Provider Family Medicine; Visit Provider Family Medicine
DX: M25.551 Pain in right hip (principal)
CPT/HCPCS: 73502

== ENCOUNTER → 2025-05-21 09:22 | Outpatient (CLI) | payer MEDICARE, OTHER, SELFPAY ==
--- NOTE | 2025-05-21 09:24 | DI.MRI.S_ITS ---
PROCEDURE: MR FEMUR RT WO CON INDICATIONS: STRAIN OF HAMSTRING TECHNIQUE: Noncontrast coronal and sagittal T1 spin echo and STIR; axial T1 spin echo and T2 fast spin echo with fat saturation through the right femur. COMPARISON: None. FINDINGS: Image quality: Excellent. Bones: Right hip joint osteoarthritic changes are seen with joint space narrowing, subchondral sclerosis and thinning of articulating cartilage. No acute fracture or dislocation. No suspicious intraosseous lesion. No evidence of avascular necrosis of femoral head. Soft tissues: There is full-thickness rupture involving origins of right hamstring tendons at their insertions on right ischial tuberosity with up to 3.6 cm distal retraction of torn tendon fibers with large amount of surrounding fluid extending to distal right thigh. No other muscle or tendon signal abnormalities. IMPRESSION: 1. Full-thickness rupture involving right hamstring tendon origins at ischial tuberosity with up to 3.6 cm distal retraction of torn tendon fibers and large amount of surrounding edema and fluid extending to the level of distal right thigh. 2. [id number] right hip joint osteoarthritis. No right femoral fracture or dislocation. No suspicious intraosseous lesion. No evidence of avascular necrosis of femoral heads. Dictated by: Jose Daniel Pike M.D. on 05/23/2025 at 9:44 Approved by: Jose Daniel Pike M.D. on 05/23/2025 at 9:59
== END ==
LOC: MRI 09:23
PROVIDERS: PCP Family Medicine; Referring Provider Family Medicine; Visit Provider Family Medicine
DX: S76.311A Strain of muscle, fascia and tendon of the posterior muscle group at thigh level, right thigh, initial encounter (principal); M16.11 Unilateral primary osteoarthritis, right hip; X58.XXXA Exposure to other specified factors, initial encounter
CPT/HCPCS: 73718